=== PATIENT | female | born 1995 | race Caucasian/White ===

== ENCOUNTER 2016-06-15 14:23 | Emergency (ER) | payer OTHER ==
[2016-06-15 14:30] VITALS: RESP 16; TEMP 97.5
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
[2016-06-15 17:11] VITALS: BP 138/95; PULSE 82; O2SAT 95
== END 2016-06-22 13:47 | disposition home or self-care (01) ==
PROC: 0HQ1XZZ Repair Face Skin, External Approach (ICD-10-PCS; principal; 2016-06-15)
DX: S01.111A Laceration without foreign body of right eyelid and periocular area, initial encounter (principal); X58.XXXA Exposure to other specified factors, initial encounter; Y92.89 Other specified places as the place of occurrence of the external cause